=== PATIENT | female | born 1935 | race Caucasian/White ===

== ENCOUNTER → 2017-09-28 | Outpatient (CLI) | payer MEDICARE ==
[~2017-09-28] MED LIST: FLUT12AE INH; OMEP-110 PO
[2017-09-28 09:57] LABS: HEMATOCRIT 45.6 % (34.6-47.8); HEMOGLOBIN 15.4 g/dL (11.7-16.4); WHITE BLOOD COUNT 6.9 x10^3/uL (3.4-10)
[2017-09-28 10:14] LABS: ASPARTATE AMINO TRANSFERASE 16 U/L (15-37); BLOOD UREA NITROGEN 17 mg/dL (7-18)
== END | disposition home or self-care (01) ==
LOC: STAR 08:51
PROVIDERS: ATTEND Specialist
DX: Z01.818 Encounter for other preprocedural examination (principal); R94.31 Abnormal electrocardiogram [ECG] [EKG]; C54.1 Malignant neoplasm of endometrium; R79.1 Abnormal coagulation profile
CPT/HCPCS: 36415; 71020; 80053; 85025; 85610; 85730; 93005

== ENCOUNTER 2017-10-04 05:32 | Day surgery (SDC) | payer MEDICARE ==
[~2017-10-04] VITALS: Ht 165.1 cm; Wt 77.8 kg
[2017-10-04] MEDS ORDERED: LACTATED RINGERS 1,000 ML IV SCH (06:13)
[2017-10-04 06:36] VITALS: BP 122/79
[2017-10-04] MEDS ORDERED: LIDOCAINE GEL 2%, 5ML ONE (07:26)
[2017-10-04] MEDS ORDERED: ONDANSETRON 2MG/ML, 2ML ONE ×2 (07:28→10:56)
[2017-10-04] MEDS ORDERED: SUCCINYLCHOLINE 20 MG/ML, 10ML ONE (07:28)
[2017-10-04] MEDS ORDERED: GLYCOPYRROLATE 0.2MG/1ML, 5ML ONE (07:28)
[2017-10-04] MEDS ORDERED: MIDAZOLAM 1 MG/ML, 2ML ONE (07:28)
[2017-10-04] MEDS ORDERED: ROCURONIUM 10 MG/ML,10ML ONE (07:28)
[2017-10-04] MEDS ORDERED: DEXAMETHASONE 4 MG/ML, 1ML ONE (07:28)
[2017-10-04] MEDS ORDERED: PROPOFOL 10 MG/ML, 20ML ONE (07:28)
[2017-10-04] MEDS ORDERED: NEOSTIGMINE 1 MG/ML, 10ML ONE (07:28)
[2017-10-04] MEDS ORDERED: FENTANYL PF 250 MCG/5ML ONE (07:28)
[2017-10-04] MEDS ORDERED: CEFAZOLIN 1,000 MG ONE (07:28)
[2017-10-04] MEDS ORDERED: BUPIVACAINE/PF-EPI 0.25% 1:200K IM ONE (08:31)
[2017-10-04] MEDS ORDERED: INDOCYANINE GREEN 25 MG VIAL INJ ONE (08:32)
[2017-10-04] MEDS ORDERED: MEPERIDINE/PF 25MG/0.5ML IVPush PRN (09:30)
[2017-10-04] MEDS ORDERED: OXYcodone 5 MG/5 ML ORAL.SOL UDC PO PRN (09:30)
[2017-10-04] MEDS ORDERED: MIDAZOLAM 1 MG/ML, 2ML IV PRN (09:30)
[2017-10-04] MEDS ORDERED: ONDANSETRON 2MG/ML, 2ML IVPush PRN (09:30)
[2017-10-04] MEDS ORDERED: PROMETHAZINE 25 MG/ML, 1ML IV PRN (09:30)
[2017-10-04] MEDS ORDERED: DIAZEPAM 5 MG/ML, 2ML IVPush PRN (09:30)
[2017-10-04] MEDS ORDERED: LABETALOL 5MG/ML, 20ML IV PRN (09:30)
[2017-10-04] MEDS ORDERED: ALBUTEROL/IPRATROPIUM 2.5MG/0.5MG, 3 ML NPPB PRN (09:30)
[2017-10-04] MEDS ORDERED: hydrALAzine 20 MG/ML, 1ML IV PRN (09:30)
[2017-10-04] MEDS ORDERED: HYDROmorphone 1 MG/ML, 1ML IV PRN (09:30)
[2017-10-04] MEDS ORDERED: ACETAMINOPHEN 325 MG TABLET PO PRN (09:30)
[2017-10-04] MEDS ORDERED: KETOROLAC 30 MG/1 ML ONE (09:40)
[2017-10-04] MEDS ORDERED: ACETAMINOPHEN 650 MG/20.3 ML UDC ONE (10:02)
[2017-10-04] MEDS ORDERED: OXYcodone 5 MG/5 ML ORAL.SOL UDC ONE (10:02)
[2017-10-04] MEDS ORDERED: FENTANYL PF 100 MCG/2ML ONE (10:02)
[2017-10-04] MEDS: FENTANYL PF 100 MCG/2ML IV PRN ×3 (10:10→11:00)
[2017-10-04] MEDS ORDERED: INDOCYANINE GREEN 25 MG VIAL ONE (11:23)
== END 2017-10-04 16:15 ==
LOC: OUT 05:32
PROVIDERS: ATTEND Specialist
DX: C54.1 Malignant neoplasm of endometrium (principal); Q51.3 Bicornate uterus; Z98.890 Other specified postprocedural states; J45.909 Unspecified asthma, uncomplicated
CPT/HCPCS: 36415; 58548; 74000; 86850; 86900; 86923; 88305; 88307; 88329; 88333; J0330; J0690; J1100; J1644; J1885; J2250; J2405; J2704; J2710; J3010; J3490; J7120; S2900